=== PATIENT | male | born 1940 | race Caucasian/White ===

== ENCOUNTER 2018-07-12 13:44 | Inpatient (IN) ==
[2018-07-14] MEDS ORDERED: GLUCAGON 1 MG VIAL IM PRN (08:41)
[2018-07-14] MEDS ORDERED: DEXTROSE 50% 25 GM/50 ML VIAL IV PRN (08:41)
[2018-07-14] MEDS ORDERED: CEFUROXIME INJ 1,500 MG in SYRINGE 1 EACH IV ONE (08:41)
[2018-07-14] MEDS ORDERED: FUROSEMIDE 20 MG TABLET PO PRN (08:44)
[2018-07-14] MEDS ORDERED: CLORAZEPATE 3.75 MG TABLET PO PRN (08:45)
[2018-07-14] MEDS ORDERED: PANTOPRAZOLE 40 MG TABLET PO SCH (09:00)
[2018-07-14 11:37] LABS: Basophils % 0.7 % (0.0-0.8); Eosinophils # 0.1 10*3/uL (0.0-0.87); Eosinophils % 2.2 % (0.00-10.9); Hematocrit 43.1 VOL% (42.0-52.0); Hemoglobin 13.6 GM/DL (14.0-18.0); Immature Granulocytes % 0.2 %; Immature Granulocytes Absolute 0.01 #; Lymphocytes # 1.1 10*3/uL (1.4-4.0); Lymphocytes % 19.7 % (21.2-54.2); Mean Corpuscular HGB Conc 31.6 GM/DL (32-36); Mean Corpuscular Volume 92.7 FL (87-102); Mean Platelet Volume 9.6 FL (9.6-12.0); Monocytes % 8.3 % (1.7-12.7); Neutrophils % 68.9 % (38.7-73.9); Platelet Count 270 T/CUMM (130-400); Red Blood Count 4.65 MC/CUMM (3.8-5.5); Red Cell Distribution Width 13.5 % (9.3-17.3); White Blood Count 5.4 T/CUMM (4-12)
[2018-07-14 12:08] LABS: Bilirubin,Total 0.7 MG/DL (0.2-1.0); Calcium 9.1 MG/DL (8.5-10.1); Osmolality,Calculated 281.3 MOS/KG (273-304); Total Protein 7.5 G/DL (6.4-8.3)
[2018-07-14] MEDS: LEVOTHYROXINE 100 MCG TABLET PO SCH (14:20)
[2018-07-14] MEDS: ASCORBIC ACID 500 MG TABLET PO SCH (14:20)
[2018-07-14] MEDS: ASPIRIN EC 81 MG TABLET PO SCH (14:20)
[2018-07-14] MEDS: CHLORHEXIDINE 0.12% ORAL RINSE 60 ML BOTTLE SWISH/SPIT SCH ×2 (14:21→20:15)
[2018-07-14] MEDS: CHLORHEXIDINE 4% SOLN 118 ML BOTTLE TOP SCH ×2 (14:21→20:13)
[2018-07-14 16:32] LABS: ABG Base Excess 0.6 MMOL/L (-2.5-2.5); ABG HCO3 24.9 MMOL/L (20-26); ABG Oxygen Saturation 96.3 % (95-100); ABG PCO2 41.8 MM HG (35-48); ABG PH 7.394 (7.35-7.45); ABG PO2 82.2 MM HG (80-95); ABG TCO2 22.6 MMOL/L (23-27)
[2018-07-14] MEDS: SODIUM CHLORIDE 0.9% 1,000 ML IV SCH (18:15)
[2018-07-14] MEDS ORDERED: SIMVASTATIN 40 MG TABLET PO SCH (21:00)
[2018-07-15] MEDS ORDERED: VANCOMYCIN 1,000 MG VIAL ONE (04:36)
[2018-07-15] MEDS ORDERED: PAPAVERINE 60 MG/2 ML VIAL ONE (04:36)
[2018-07-15] MEDS ORDERED: CALCIUM CHLORIDE 1,000 MG/10 ML VIAL IV ONE (05:53)
[2018-07-15] MEDS ORDERED: MIDAZOLAM 10 MG/2 ML VIAL ONE (05:53)
[2018-07-15] MEDS ORDERED: HEPARIN/NACL 0.9% 2 UNITS/ML 500 ML IV ONE (05:53)
[2018-07-15] MEDS ORDERED: SUFentanil 250 MCG/5 ML AMP ONE (05:53)
[2018-07-15] MEDS ORDERED: SODIUM CHLORIDE 0.9% 250 ML IV ONE (05:54)
[2018-07-15] MEDS ORDERED: ePHEDrine 50 MG/ML AMP ONE (05:54)
[2018-07-15] MEDS ORDERED: NITROGLYCERIN DRIP 50 MG/250 ML BOTTLE IV ONE (05:54)
[2018-07-15] MEDS ORDERED: AMINOCAPROIC ACID 5,000 MG/20 ML VIAL ONE (05:54)
[2018-07-15] MEDS ORDERED: LACTATED RINGERS 1,000 ML IV ONE (05:54)
[2018-07-15] MEDS ORDERED: PHENYLEPHRINE 10 MG/1 ML VIAL IV ONE (05:54)
[2018-07-15] MEDS ORDERED: VECURONIUM 10 MG VIAL IV ONE (05:54)
[2018-07-15] MEDS ORDERED: SODIUM CHLORIDE 0.9% 1,000 ML IV ONE (05:54)
[2018-07-15] MEDS ORDERED: CEFUROXIME INJ 1,500 MG in SYRINGE 1 EACH IV ONE (06:30)
[2018-07-15 07:42] LABS: ABG Base Excess 1.3 MMOL/L (-2.5-2.5); ABG HCO3 25.6 MMOL/L (20-26); ABG PCO2 36.9 MM HG (35-48); ABG PH 7.441 (7.35-7.45); ABG TCO2 21.9 MMOL/L (23-27); Glucose Heart Surgery 114 MG/DL (74-106); Hematocrit Heart Surgery 39.3 PERCENT (42-52); Hemoglobin Heart Surgery 12.8 G/DL (14.0-18.0); Ionized Calcium Arterial 1.18 MMOL/L (1.21-1.46); PCO2 Patient Temp Arterial 36.9 MMHG; PH Patient Temp Arterial 7.441; Patient Temperature 37 CELCIUS; Potassium Heart/CVR 3.7 MMOL/L (3.5-5.1); Sodium Heart/CVR 140 MMOL/L (135-145)
[2018-07-15 08:53] LABS: Apearance,Urine CLEAR (Clear); Bilirubin,Urine Negative (Negative); Blood, Urine Negative (Negative); Glucose,Urine (UA) Negative (Negative); Hyaline Casts,Urine 3 /LPF (0-3); Ketones,Urine Negative (Negative); Mucus,Urine Many /LPF (Occasional); Nitrite,Urine Negative (Negative); Protein,Urine Negative; RBC,Urine 1 /HPF (0-4); Urine Color Yellow (Yellow); Urine Specific Gravity 1.017 (1.001-1.035); Urine Urobilinogen < 2.0 EU/DL (0.2-1.0); WBC,Urine 1 /HPF (0-6)
[2018-07-15 09:01] LABS: Hematocrit Heart Surgery 28.7 PERCENT (42-52); Hemoglobin Heart Surgery 9.3 G/DL (14.0-18.0); PCO2 Patient Temp Venous 33.9 MM HG; PH Patient Temp Venous 7.472; PO2 Patient Temp Venous 44.5 MM HG; Potassium Heart/CVR 4.3 MMOL/L (3.5-5.1); VBG Base Excess 1.5 MEQ/L (0-4); VBG HCO3 25.6 MEQ/L (24-28); VBG Oxygen Saturation 88.1 %; VBG PCO2 37.4 MMHG (41-51); VBG PH 7.443
[2018-07-15 09:38] LABS: Hemoglobin Heart Surgery 10.2 G/DL (14.0-18.0); PCO2 Patient Temp Venous 30.7 MM HG; PH Patient Temp Venous 7.504; PO2 Patient Temp Venous 48.7 MM HG; Potassium Heart/CVR 4.4 MMOL/L (3.5-5.1); VBG HCO3 23.6 MEQ/L (24-28); VBG Oxygen Saturation 87.2 %; VBG PCO2 30.7 MMHG (41-51); VBG PH 7.504; VBG PO2 48.7 MMHG (17-40)
[2018-07-15 10:07] LABS: Hemoglobin Heart Surgery 10.2 G/DL (14.0-18.0); PCO2 Patient Temp Venous 25.5 MM HG; PH Patient Temp Venous 7.566; PO2 Patient Temp Venous 38.3 MM HG; VBG Base Excess 0.9 MEQ/L (0-4); VBG HCO3 23.2 MEQ/L (24-28); VBG Oxygen Saturation 86.3 %; VBG PCO2 29.1 MMHG (41-51); VBG PH 7.52; VBG PO2 47.3 MMHG (17-40)
[2018-07-15] MEDS ORDERED: CALCIUM CHLORIDE 1,000 MG/10 ML SYRINGE IV ONE (10:16)
[2018-07-15] MEDS ORDERED: NITROPRUSSIDE 50 MG/2 ML VIAL ONE (10:16)
[2018-07-15] MEDS ORDERED: SODIUM BICARBONATE 50 MEQ/50 ML VIAL IV ONE ×2 (10:16→11:44)
[2018-07-15] MEDS ORDERED: PHENYLEPHRINE DRIP 40 MG/250 ML PREMIX IV ONE (10:16)
[2018-07-15] MEDS ORDERED: POTASSIUM CHLORIDE RIDER 100 ML IV ONE (10:16)
[2018-07-15] MEDS ORDERED: ALBUMIN 5% 12.5 GM/250 ML VIAL IV ONE (10:16)
[2018-07-15] MEDS ORDERED: AMIODARONE 150 MG/3 ML VIAL ONE (10:31)
[2018-07-15] MEDS ORDERED: diphenhydrAMINE 50 MG/1 ML VIAL ONE (10:31)
[2018-07-15] MEDS ORDERED: FAMOTIDINE 20 MG/2 ML VIAL IV ONE (10:31)
[2018-07-15 10:37] LABS: Hemoglobin Heart Surgery 10.5 G/DL (14.0-18.0); PCO2 Patient Temp Venous 27.3 MM HG; PH Patient Temp Venous 7.538; PO2 Patient Temp Venous 40.3 MM HG; VBG Base Excess 0.8 MEQ/L (0-4); VBG HCO3 22.9 MEQ/L (24-28); VBG Oxygen Saturation 83.2 %; VBG PCO2 28.5 MMHG (41-51); VBG PH 7.523; VBG PO2 43.2 MMHG (17-40)
[2018-07-15] MEDS ORDERED: MANNITOL 100 GM/500 ML BAG IV ONE (11:43)
[2018-07-15] MEDS ORDERED: DEXTROSE 5% KCL 20 MEQ 40 MEQ/2,000 ML BAG IV ONE (11:44)
[2018-07-15] MEDS ORDERED: PROTAMINE SULFATE 250 MG/25 ML VIAL IV ONE (11:44)
[2018-07-15] MEDS ORDERED: ALBUMIN 25% 25 GM/100 ML VIAL IV ONE (11:44)
[2018-07-15] MEDS ORDERED: methylPREDNISolone SOD SUC 1,000 MG/8 ML VIAL ONE (11:45)
[2018-07-15] MEDS ORDERED: MAGNESIUM SULFATE 5 GM/10 ML VIAL IV ONE (11:45)
[2018-07-15] MEDS ORDERED: HEPARIN 10,000 UNIT/10 ML VIAL ONE (11:45)
[2018-07-15] MEDS ORDERED: FUROSEMIDE 20 MG/2 ML VIAL ONE (11:45)
[2018-07-15 11:52] LABS: ABG Base Excess 1.4 MMOL/L (-2.5-2.5); ABG HCO3 25.7 MMOL/L (20-26); ABG PCO2 34.5 MM HG (35-48); ABG PH 7.465 (7.35-7.45); ABG TCO2 22.8 MMOL/L (23-27); Glucose Heart Surgery 227 MG/DL (74-106); Hematocrit Heart Surgery 28.4 PERCENT (42-52); Hemoglobin Heart Surgery 9.2 G/DL (14.0-18.0); Ionized Calcium Arterial 1.13 MMOL/L (1.21-1.46); PCO2 Patient Temp Arterial 34.5 MMHG; PH Patient Temp Arterial 7.465; Patient Temperature 37 CELCIUS; Potassium Heart/CVR 3.5 MMOL/L (3.5-5.1); Sodium Heart/CVR 135 MMOL/L (135-145)
[2018-07-15] MEDS ORDERED: THROMBIN TOPICAL (RECOMBINANT) 5,000 UNIT VIAL TOP ONE (12:00)
[2018-07-15] MEDS ORDERED: NITROPRUSSIDE 100 MG in DEXTROSE 5% 250 ML IV PRN (13:03)
[2018-07-15] MEDS ORDERED: CALCIUM CHLORIDE 1,000 MG/10 ML SYRINGE IV PRN (13:03)
[2018-07-15] MEDS ORDERED: SODIUM CHLORIDE 0.45% 1,000 ML IV SCH (13:03)
[2018-07-15] MEDS ORDERED: MIDAZOLAM 2 MG/2 ML VIAL IV PRN (13:03)
[2018-07-15] MEDS ORDERED: ACETAMINOPHEN 650 MG SUPP RECTAL PRN (13:03)
[2018-07-15] MEDS ORDERED: PHENYLEPHRINE DRIP 40 MG/250 ML PREMIX IV PRN (13:03)
[2018-07-15] MEDS ORDERED: VECURONIUM 10 MG VIAL IV PRN ×2 (13:03)
[2018-07-15] MEDS ORDERED: DEXTROSE 50% 25 GM/50 ML SYRINGE IV PRN ×2 (13:03)
[2018-07-15] MEDS ORDERED: MORPHINE 4 MG/1 ML VIAL IV PRN (13:03)
[2018-07-15] MEDS ORDERED: MIDAZOLAM 10 MG/2 ML VIAL IV PRN (13:03)
[2018-07-15] MEDS ORDERED: INSULIN REGULAR 100 UNIT/ML IV ONE ×2 (13:03→21:24)
[2018-07-15] MEDS ORDERED: MAGNESIUM SULF RIDER 4 GM in PREMIX 1 EACH IV PRN (13:03)
[2018-07-15] MEDS ORDERED: INSULIN REGULAR DRIP 100 ML IV SCH (13:03)
[2018-07-15] MEDS ORDERED: MAGNESIUM SULF RIDER 2 GM in PREMIX 1 EACH IV PRN (13:03)
[2018-07-15] MEDS ORDERED: MORPHINE 10 MG/1 ML VIAL IV PRN (13:03)
[2018-07-15] MEDS: AMIODARONE INJ 450 MG in DEXTROSE 5% 241 ML IV SCH ×2 (13:09→18:03)
[2018-07-15] MEDS ORDERED: PROTAMINE SULFATE 50 MG/5 ML VIAL IV ONE (13:09)
[2018-07-15 13:13] LABS: ABG Base Excess 1.8 MMOL/L (-2.5-2.5); ABG HCO3 26.1 MMOL/L (20-26); ABG Oxygen Saturation 99.4 % (95-100); ABG PCO2 34.2 MM HG (35-48); ABG PH 7.474 (7.35-7.45); ABG TCO2 22.8 MMOL/L (23-27); Glucose Heart Surgery 174 MG/DL (74-106); Hematocrit Heart Surgery 30.2 PERCENT (42-52); Hemoglobin Heart Surgery 9.7 G/DL (14.0-18.0); Potassium Heart/CVR 3.3 MMOL/L (3.5-5.1)
[2018-07-15 13:18] LABS: Basophils % 0.2 % (0.0-0.8); Eosinophils % 0.3 % (0.00-10.9); Hematocrit 29.7 VOL% (42.0-52.0); Hemoglobin 9.3 GM/DL (14.0-18.0); Immature Granulocytes % 0.7 %; Immature Granulocytes Absolute 0.08 #; Lymphocytes # 0.3 10*3/uL (1.4-4.0); Lymphocytes % 2.9 % (21.2-54.2); Mean Corpuscular HGB Conc 31.3 GM/DL (32-36); Mean Corpuscular Volume 93.7 FL (87-102); Mean Platelet Volume 9.6 FL (9.6-12.0); Monocytes % 3.7 % (1.7-12.7); Neutrophils % 92.2 % (38.7-73.9); Platelet Count 193 T/CUMM (130-400); Red Blood Count 3.17 MC/CUMM (3.8-5.5); Red Cell Distribution Width 13.4 % (9.3-17.3); White Blood Count 11.5 T/CUMM (4-12)
[2018-07-15 13:25] LABS: INR 1.1; Partial Thromboplastin Time 25.7 SECS (0-40)
[2018-07-15] MEDS: LACTATED RINGERS 250 ML IV PRN ×6 (13:30→19:12)
[2018-07-15] MEDS: POTASSIUM CHLORIDE RIDER 20 MEQ in PREMIX 1 EACH IV PRN ×3 (13:33→17:56)
[2018-07-15] MEDS: SODIUM CHLORIDE 0.45% 1,000 ML IV SCH (13:33)
[2018-07-15 13:36] LABS: CKMB % 12.9 %
[2018-07-15 13:39] LABS: Troponin I 14.4 NG/ML (0.00-0.045)
[2018-07-15] MEDS: ALBUMIN 5% 12.5 GM in PREMIX 1 EACH IV PRN ×2 (13:45→18:23)
[2018-07-15 13:49] LABS: Albumin 3.3 G/DL (3.4-5.0); Bilirubin,Total 0.9 MG/DL (0.2-1.0); Calcium 9.1 MG/DL (8.5-10.1); Osmolality,Calculated 282.4 MOS/KG (273-304)
[2018-07-15] MEDS: KETOROLAC 30 MG/1 ML VIAL IV SCH ×2 (14:39→18:04)
[2018-07-15 15:35] LABS: Hypochromasia Slight; Lymphocytes 2 % (20-55); Segmented Neutrophils 96 % (50-85); Total Cells Counted 100
[2018-07-15 15:36] LABS: Platelet Estimate Adequate
[2018-07-15 17:16] LABS: ABG Base Excess 0.5 MMOL/L (-2.5-2.5); ABG HCO3 24.9 MMOL/L (20-26); ABG Oxygen Saturation 99.4 % (95-100); ABG PCO2 30.9 MM HG (35-48); ABG PH 7.485 (7.35-7.45); ABG TCO2 21.1 MMOL/L (23-27); Glucose Heart Surgery 187 MG/DL (74-106); Hematocrit Heart Surgery 30.7 PERCENT (42-52); Hemoglobin Heart Surgery 9.9 G/DL (14.0-18.0); Potassium Heart/CVR 3.9 MMOL/L (3.5-5.1)
[2018-07-15] MEDS: POTASSIUM CHLORIDE RIDER 10 MEQ in PREMIX 1 EACH IV PRN ×2 (19:09→22:10)
[2018-07-15] MEDS: CEFUROXIME INJ 1,500 MG in SYRINGE 1 EACH IV SCH (20:04)
[2018-07-15] MEDS: CHLORHEXIDINE 0.12% ORAL RINSE 60 ML BOTTLE SWISH/SPIT SCH (20:33)
[2018-07-15 21:27] LABS: ABG Base Excess -1.4 MMOL/L (-2.5-2.5); ABG HCO3 23.3 MMOL/L (20-26); ABG Oxygen Saturation 98.7 % (95-100); ABG PCO2 35.6 MM HG (35-48); ABG PH 7.414 (7.35-7.45); ABG TCO2 20.9 MMOL/L (23-27); Glucose Heart Surgery 199 MG/DL (74-106); Hematocrit Heart Surgery 29.2 PERCENT (42-52); Hemoglobin Heart Surgery 9.4 G/DL (14.0-18.0); Potassium Heart/CVR 4.3 MMOL/L (3.5-5.1)
[2018-07-15 21:59] LABS: Troponin I 22.2 NG/ML (0.00-0.045)
[2018-07-15] MEDS: INSULIN REGULAR 100 UNIT/ML IV PRN (22:56)
[2018-07-16] MEDS ORDERED: FUROSEMIDE 40 MG/4 ML VIAL IV ONE (00:01)
[2018-07-16 00:09] LABS: ABG Base Excess -3.7 MMOL/L (-2.5-2.5); ABG HCO3 21.7 MMOL/L (20-26); ABG Oxygen Saturation 98.2 % (95-100); ABG PCO2 40.7 MM HG (35-48); ABG PH 7.345 (7.35-7.45); ABG PO2 134.5 MM HG (80-95); Glucose Heart Surgery 140 MG/DL (74-106); Hemoglobin Heart Surgery 11.4 G/DL (14.0-18.0); Potassium Heart/CVR 4.3 MMOL/L (3.5-5.1)
[2018-07-16] MEDS: ONDANSETRON 4 MG/2 ML VIAL IV PRN ×2 (00:32→10:05)
[2018-07-16] MEDS: KETOROLAC 30 MG/1 ML VIAL IV SCH (00:35)
[2018-07-16] MEDS: POTASSIUM CHLORIDE RIDER 20 MEQ in PREMIX 1 EACH IV PRN (01:03)
[2018-07-16] MEDS: LACTATED RINGERS 250 ML IV PRN ×3 (01:15→05:36)
[2018-07-16] MEDS: ALBUMIN 5% 12.5 GM in PREMIX 1 EACH IV PRN ×4 (01:17→07:37)
[2018-07-16 03:11] LABS: ABG Base Excess -1.3 MMOL/L (-2.5-2.5); ABG HCO3 23.3 MMOL/L (20-26); ABG PCO2 46.7 MM HG (35-48); ABG PH 7.333 (7.35-7.45); ABG TCO2 22.5 MMOL/L (23-27); Glucose Heart Surgery 126 MG/DL (74-106); Hematocrit Heart Surgery 33.2 PERCENT (42-52); Hemoglobin Heart Surgery 10.8 G/DL (14.0-18.0); Potassium Heart/CVR 4.9 MMOL/L (3.5-5.1)
[2018-07-16 03:23] LABS: Basophils % 0.1 % (0.0-0.8); Hemoglobin 10.3 GM/DL (14.0-18.0); Immature Granulocytes % 0.4 %; Immature Granulocytes Absolute 0.04 #; Lymphocytes # 0.2 10*3/uL (1.4-4.0); Lymphocytes % 1.9 % (21.2-54.2); Mean Corpuscular HGB Conc 30.3 GM/DL (32-36); Mean Corpuscular Volume 94.4 FL (87-102); Monocytes % 4.6 % (1.7-12.7); Platelet Count 199 T/CUMM (130-400); Red Cell Distribution Width 14.7 % (9.3-17.3); White Blood Count 9.2 T/CUMM (4-12)
[2018-07-16 03:32] LABS: Bilirubin,Direct 0.51 MG/DL (0.0-0.20); Bilirubin,Total 1.4 MG/DL (0.2-1.0); Calcium 8.7 MG/DL (8.5-10.1); Osmolality,Calculated 285.1 MOS/KG (273-304); Total Protein 6.9 G/DL (6.4-8.3)
[2018-07-16 03:36] LABS: CKMB % 10.5 %
[2018-07-16 03:39] LABS: Troponin I 23.1 NG/ML (0.00-0.045)
[2018-07-16] MEDS: POTASSIUM CHLORIDE RIDER 10 MEQ in PREMIX 1 EACH IV PRN (04:16)
[2018-07-16 04:38] LABS: Band Neutrophils 2 % (0-10); Lymphocytes 2 % (20-55); Segmented Neutrophils 94 % (50-85); Total Cells Counted 100
[2018-07-16 04:39] LABS: Anisocytosis 1+; Ovalocytes Few; Platelet Estimate Adequate
[2018-07-16] MEDS: INSULIN REGULAR 100 UNIT/ML IV PRN (05:07)
[2018-07-16] MEDS: AMIODARONE INJ 450 MG in DEXTROSE 5% 241 ML IV SCH (05:19)
[2018-07-16] MEDS ORDERED: NITROGLYCERIN DRIP 50 MG/250 ML BOTTLE IV ONE (07:00)
[2018-07-16] MEDS ORDERED: NITROGLYCERIN DRIP 50 MG/250 ML BOTTLE IV PRN (07:14)
[2018-07-16] MEDS: SODIUM CHLORIDE 0.9% 1,000 ML IV SCH (07:16)
[2018-07-16] MEDS: ASPIRIN EC 81 MG TABLET PO SCH ×2 (07:16→10:40)
[2018-07-16] MEDS: CHLORHEXIDINE 0.12% ORAL RINSE 60 ML BOTTLE SWISH/SPIT SCH ×3 (07:16→20:54)
[2018-07-16] MEDS: LEVOTHYROXINE 100 MCG TABLET PO SCH ×2 (07:16→10:40)
[2018-07-16] MEDS: ASCORBIC ACID 500 MG TABLET PO SCH ×2 (07:17→10:40)
[2018-07-16] MEDS ORDERED: traMADol 50 MG TABLET PO PRN (09:13)
[2018-07-16] MEDS ORDERED: PANTOPRAZOLE 40 MG TABLET PO SCH (09:30)
[2018-07-16] MEDS ORDERED: METOCLOPRAMIDE 10 MG/2 ML VIAL IV PRN (09:44)
[2018-07-16] MEDS: CEFUROXIME INJ 1,500 MG in SYRINGE 1 EACH IV SCH ×2 (09:45→20:54)
[2018-07-16] MEDS: CHLORHEXIDINE 4% SOLN 118 ML BOTTLE TOP SCH (10:20)
[2018-07-16] MEDS: INSULIN REGULAR 100 UNIT/ML SUBCUT SCH ×3 (11:37→20:54)
[2018-07-16 13:41] LABS: CKMB % 10.7 %
[2018-07-16] MEDS: SODIUM CHLORIDE 0.45% 1,000 ML IV SCH (13:41)
[2018-07-16 13:43] LABS: Troponin I 17.4 NG/ML (0.00-0.045)
[2018-07-16] MEDS ORDERED: SIMVASTATIN 40 MG TABLET PO SCH (21:00)
[2018-07-17] MEDS ORDERED: FUROSEMIDE 40 MG/4 ML VIAL IV ONE
[2018-07-17 04:35] LABS: Basophils % 0.1 % (0.0-0.8); Hematocrit 30.9 VOL% (42.0-52.0); Hemoglobin 9.6 GM/DL (14.0-18.0); Immature Granulocytes Absolute 0.15 #; Lymphocytes # 0.3 10*3/uL (1.4-4.0); Lymphocytes % 1.7 % (21.2-54.2); Mean Corpuscular HGB Conc 31.1 GM/DL (32-36); Mean Corpuscular Volume 93.4 FL (87-102); Mean Platelet Volume 10.6 FL (9.6-12.0); Monocytes % 4.1 % (1.7-12.7); Neutrophils % 93.1 % (38.7-73.9); Platelet Count 158 T/CUMM (130-400); Red Blood Count 3.31 MC/CUMM (3.8-5.5); Red Cell Distribution Width 15.1 % (9.3-17.3); White Blood Count 15.5 T/CUMM (4-12)
[2018-07-17 05:01] LABS: Albumin 3.9 G/DL (3.4-5.0); Bilirubin,Direct 0.27 MG/DL (0.0-0.20); Bilirubin,Total 1.1 MG/DL (0.2-1.0); Calcium 8.3 MG/DL (8.5-10.1); Osmolality,Calculated 284.5 MOS/KG (273-304); Total Protein 6.3 G/DL (6.4-8.3)
[2018-07-17 05:20] LABS: Band Neutrophils 4 % (0-10); Lymphocytes 1 % (20-55); Platelet Estimate Adequate; Segmented Neutrophils 93 % (50-85); Total Cells Counted 100
[2018-07-17] MEDS ORDERED: HEPARIN/NACL 0.9% 2 UNITS/ML 500 ML IV ONE (06:21)
[2018-07-17] MEDS: INSULIN REGULAR 100 UNIT/ML SUBCUT SCH ×2 (09:13→14:56)
[2018-07-17] MEDS: LEVOTHYROXINE 100 MCG TABLET PO SCH (09:15)
[2018-07-17] MEDS: CHLORHEXIDINE 0.12% ORAL RINSE 60 ML BOTTLE SWISH/SPIT SCH ×2 (09:15→21:04)
[2018-07-17] MEDS: ASPIRIN EC 81 MG TABLET PO SCH (09:15)
[2018-07-17] MEDS: ASCORBIC ACID 500 MG TABLET PO SCH (09:15)
[2018-07-17] MEDS ORDERED: AMIODARONE 200 MG TABLET PO SCH (09:30)
[2018-07-17] MEDS ORDERED: GLUCAGON 1 MG VIAL IM PRN ×2 (14:11)
[2018-07-17] MEDS ORDERED: MORPHINE 4 MG/1 ML VIAL IV PRN (14:11)
[2018-07-17] MEDS ORDERED: POTASSIUM CHLORIDE 20 MEQ TABLET PO PRN (14:11)
[2018-07-17] MEDS ORDERED: MAGNESIUM SULF RIDER 4 GM in PREMIX 1 EACH IV PRN (14:11)
[2018-07-17] MEDS ORDERED: SODIUM CHLOR 0.45% KCL 20 MEQ 20 MEQ/1,000 ML BAG IV SCH (14:11)
[2018-07-17] MEDS ORDERED: DEXTROSE 50% 25 GM/50 ML VIAL IV PRN ×2 (14:11)
[2018-07-17] MEDS ORDERED: ALUMINUM/MAGNES/SIMETH MAX STR 30 ML UDCUP PO PRN (14:11)
[2018-07-17] MEDS ORDERED: MAGNESIUM SULF RIDER 2 GM in PREMIX 1 EACH IV PRN (14:11)
[2018-07-17] MEDS ORDERED: ZALEPLON 5 MG CAPSULE PO PRN (14:11)
[2018-07-17] MEDS: SODIUM CHLORIDE 0.45% 1,000 ML IV SCH (14:56)
[2018-07-17] MEDS: MAGNESIUM HYDROXIDE SUSP 30 ML UDCUP PO PRN (17:07)
[2018-07-18 03:37] LABS: Basophils % 0.1 % (0.0-0.8); Hematocrit 34.2 VOL% (42.0-52.0); Hemoglobin 10.7 GM/DL (14.0-18.0); Immature Granulocytes % 0.7 %; Immature Granulocytes Absolute 0.11 #; Lymphocytes # 0.6 10*3/uL (1.4-4.0); Lymphocytes % 3.8 % (21.2-54.2); Mean Corpuscular HGB Conc 31.3 GM/DL (32-36); Mean Corpuscular Volume 92.2 FL (87-102); Mean Platelet Volume 10.7 FL (9.6-12.0); Monocytes % 6.7 % (1.7-12.7); Neutrophils % 88.7 % (38.7-73.9); Platelet Count 173 T/CUMM (130-400); Red Blood Count 3.71 MC/CUMM (3.8-5.5); Red Cell Distribution Width 14.7 % (9.3-17.3); White Blood Count 16.5 T/CUMM (4-12)
[2018-07-18 04:21] LABS: Band Neutrophils 1 % (0-10); Lymphocytes 3 % (20-55); Ovalocytes 1+; Platelet Estimate Normal; Segmented Neutrophils 92 % (50-85); Total Cells Counted 100
[2018-07-18 04:22] LABS: Hypochromasia Slight
[2018-07-18 04:33] LABS: Albumin 3.9 G/DL (3.4-5.0); Bilirubin,Direct 0.19 MG/DL (0.0-0.20); Bilirubin,Indirect 0.5 MG/DL (0.0-1.0); Bilirubin,Total 0.7 MG/DL (0.2-1.0); CKMB % 3.4 %; Calcium 8.7 MG/DL (8.5-10.1); Osmolality,Calculated 281.8 MOS/KG (273-304); Total Protein 6.8 G/DL (6.4-8.3)
[2018-07-18 04:34] LABS: Troponin I 10.9 NG/ML (0.00-0.045)
[2018-07-18] MEDS ORDERED: FUROSEMIDE 40 MG/4 ML VIAL IV ONE (06:00)
[2018-07-18] MEDS: ONDANSETRON 4 MG/2 ML VIAL IV PRN ×2 (07:06→12:59)
[2018-07-18] MEDS: PANTOPRAZOLE 40 MG TABLET PO SCH ×2 (08:04→09:20)
[2018-07-18] MEDS: LEVOTHYROXINE 100 MCG TABLET PO SCH (08:05)
[2018-07-18] MEDS: DOCUSATE SODIUM 100 MG CAPSULE PO SCH (08:12)
[2018-07-18] MEDS: ASCORBIC ACID 500 MG TABLET PO SCH (08:12)
[2018-07-18] MEDS: FERROUS SULFATE 325 MG TABLET PO SCH (08:13)
[2018-07-18] MEDS: AMIODARONE 200 MG TABLET PO SCH (08:13)
[2018-07-18] MEDS: ASPIRIN EC 81 MG TABLET PO SCH (08:13)
[2018-07-18] MEDS: CHLORHEXIDINE 0.12% ORAL RINSE 60 ML BOTTLE SWISH/SPIT SCH ×2 (08:14→21:15)
[2018-07-18] MEDS ORDERED: METOCLOPRAMIDE 10 MG/2 ML VIAL IV PRN (08:53)
[2018-07-18] MEDS ORDERED: PANTOPRAZOLE 40 MG TABLET PO SCH (09:00)
[2018-07-18] MEDS: APIXABAN 5 MG TABLET PO SCH ×2 (09:27→21:14)
[2018-07-18] MEDS ORDERED: CARVEDILOL 3.125 MG TABLET PO SCH (09:30)
[2018-07-19] MEDS: ACETAMINOPHEN 325 MG TABLET PO PRN ×2 (03:35→21:59)
[2018-07-19 05:39] LABS: Basophils % 0.1 % (0.0-0.8); Eosinophils % 0.1 % (0.00-10.9); Hematocrit 34.2 VOL% (42.0-52.0); Hemoglobin 10.3 GM/DL (14.0-18.0); Immature Granulocytes % 0.4 %; Immature Granulocytes Absolute 0.04 #; Lymphocytes # 0.9 10*3/uL (1.4-4.0); Lymphocytes % 8.9 % (21.2-54.2); Mean Corpuscular HGB Conc 30.1 GM/DL (32-36); Mean Corpuscular Volume 95.3 FL (87-102); Mean Platelet Volume 10.7 FL (9.6-12.0); Monocytes % 8.5 % (1.7-12.7); Platelet Count 178 T/CUMM (130-400); Red Blood Count 3.59 MC/CUMM (3.8-5.5); Red Cell Distribution Width 14.6 % (9.3-17.3); White Blood Count 10.6 T/CUMM (4-12)
[2018-07-19 06:14] LABS: Alanine Aminotransferase 27 U/L (16-61); Albumin 3.8 G/DL (3.4-5.0); Alkaline Phosphatase 65 U/L (45-117); Aspartate Amino Transferase 49 U/L (0-37); Bilirubin,Indirect 0.9 MG/DL (0.0-1.0); Blood Urea Nitrogen 31 MG/DL (7-18); Calcium 8.4 MG/DL (8.5-10.1); Glucose 87 MG/DL (74-106); Osmolality,Calculated 282.5 MOS/KG (273-304); Total Protein 6.4 G/DL (6.4-8.3)
[2018-07-19] MEDS: PANTOPRAZOLE 40 MG TABLET PO SCH (09:22)
[2018-07-19] MEDS: AMIODARONE 200 MG TABLET PO SCH (09:22)
[2018-07-19] MEDS: APIXABAN 5 MG TABLET PO SCH ×2 (09:22→21:58)
[2018-07-19] MEDS: LEVOTHYROXINE 100 MCG TABLET PO SCH (09:22)
[2018-07-19] MEDS: DOCUSATE SODIUM 100 MG CAPSULE PO SCH (09:23)
[2018-07-19] MEDS: CHLORHEXIDINE 0.12% ORAL RINSE 60 ML BOTTLE SWISH/SPIT SCH ×2 (09:23→22:05)
[2018-07-19] MEDS: FERROUS SULFATE 325 MG TABLET PO SCH (09:23)
[2018-07-19] MEDS: ASCORBIC ACID 500 MG TABLET PO SCH (09:23)
[2018-07-19] MEDS: ASPIRIN EC 81 MG TABLET PO SCH (09:23)
[2018-07-19] MEDS ORDERED: CARVEDILOL 3.125 MG TABLET PO SCH (21:00)
[2018-07-19] MEDS: CLORAZEPATE 3.75 MG TABLET PO PRN (21:58)
[2018-07-20 05:27] LABS: Basophils % 0.1 % (0.0-0.8); Eosinophils % 0.4 % (0.00-10.9); Hematocrit 31.2 VOL% (42.0-52.0); Hemoglobin 9.8 GM/DL (14.0-18.0); Immature Granulocytes % 0.3 %; Immature Granulocytes Absolute 0.02 #; Lymphocytes # 0.8 10*3/uL (1.4-4.0); Lymphocytes % 11.3 % (21.2-54.2); Mean Corpuscular HGB Conc 31.4 GM/DL (32-36); Mean Platelet Volume 10.3 FL (9.6-12.0); Monocytes % 10.9 % (1.7-12.7); Platelet Count 170 T/CUMM (130-400); Red Blood Count 3.39 MC/CUMM (3.8-5.5); Red Cell Distribution Width 14.5 % (9.3-17.3); White Blood Count 6.9 T/CUMM (4-12)
[2018-07-20 06:00] LABS: Calcium 8.3 MG/DL (8.5-10.1); Osmolality,Calculated 280.7 MOS/KG (273-304)
[2018-07-20] MEDS: LEVOTHYROXINE 100 MCG TABLET PO SCH (06:34)
[2018-07-20] MEDS: CARVEDILOL 6.25 MG TABLET PO SCH ×2 (08:56→21:09)
[2018-07-20] MEDS: ASPIRIN EC 81 MG TABLET PO SCH (08:56)
[2018-07-20] MEDS: APIXABAN 5 MG TABLET PO SCH ×2 (08:56→21:09)
[2018-07-20] MEDS: AMIODARONE 200 MG TABLET PO SCH (08:57)
[2018-07-20] MEDS: CHLORHEXIDINE 0.12% ORAL RINSE 60 ML BOTTLE SWISH/SPIT SCH ×2 (15:08→21:15)
[2018-07-20] MEDS: FERROUS SULFATE 325 MG TABLET PO SCH (15:08)
[2018-07-20] MEDS: PANTOPRAZOLE 40 MG TABLET PO SCH (15:08)
[2018-07-20] MEDS: DOCUSATE SODIUM 100 MG CAPSULE PO SCH (15:08)
[2018-07-20] MEDS: ASCORBIC ACID 500 MG TABLET PO SCH (15:08)
[2018-07-20] MEDS: ROSUVASTATIN 20 MG TABLET PO SCH (21:09)
[2018-07-20] MEDS: CLORAZEPATE 3.75 MG TABLET PO PRN (21:09)
[2018-07-20] MEDS: ACETAMINOPHEN 325 MG TABLET PO PRN (21:10)
[2018-07-20] MEDS: MAGNESIUM HYDROXIDE SUSP 30 ML UDCUP PO PRN (23:44)
[2018-07-21] MEDS: LEVOTHYROXINE 100 MCG TABLET PO SCH (05:32)
[2018-07-21 06:14] LABS: Basophils % 0.2 % (0.0-0.8); Eosinophils # 0.1 10*3/uL (0.0-0.87); Hematocrit 31.7 VOL% (42.0-52.0); Hemoglobin 9.8 GM/DL (14.0-18.0); Immature Granulocytes % 0.5 %; Immature Granulocytes Absolute 0.03 #; Lymphocytes % 14.6 % (21.2-54.2); Mean Corpuscular HGB Conc 30.9 GM/DL (32-36); Mean Corpuscular Volume 92.7 FL (87-102); Mean Platelet Volume 9.9 FL (9.6-12.0); Monocytes % 12.8 % (1.7-12.7); Neutrophils % 69.9 % (38.7-73.9); Platelet Count 166 T/CUMM (130-400); Red Blood Count 3.42 MC/CUMM (3.8-5.5); Red Cell Distribution Width 14.4 % (9.3-17.3); White Blood Count 6.7 T/CUMM (4-12)
[2018-07-21 06:45] LABS: Alanine Aminotransferase 28 U/L (16-61); Alkaline Phosphatase 60 U/L (45-117); Aspartate Amino Transferase 37 U/L (0-37); Bilirubin,Indirect 0.5 MG/DL (0.0-1.0); Blood Urea Nitrogen 30 MG/DL (7-18); Calcium 8.6 MG/DL (8.5-10.1); Glucose 92 MG/DL (74-106); Total Protein 5.8 G/DL (6.4-8.3)
[2018-07-21 08:13] LABS: Calcium 8.5 MG/DL (8.5-10.1); Osmolality,Calculated 279.8 MOS/KG (273-304)
[2018-07-21] MEDS: AMIODARONE 200 MG TABLET PO SCH (09:06)
[2018-07-21] MEDS: APIXABAN 5 MG TABLET PO SCH ×2 (09:06→21:43)
[2018-07-21] MEDS: CARVEDILOL 6.25 MG TABLET PO SCH ×2 (09:06→21:43)
[2018-07-21] MEDS: ASPIRIN EC 81 MG TABLET PO SCH (09:07)
[2018-07-21] MEDS: CHLORHEXIDINE 0.12% ORAL RINSE 60 ML BOTTLE SWISH/SPIT SCH ×2 (09:07→21:43)
[2018-07-21] MEDS: PANTOPRAZOLE 40 MG TABLET PO SCH (09:07)
[2018-07-21] MEDS: DOCUSATE SODIUM 100 MG CAPSULE PO SCH (10:42)
[2018-07-21] MEDS: FERROUS SULFATE 325 MG TABLET PO SCH (10:42)
[2018-07-21] MEDS: ASCORBIC ACID 500 MG TABLET PO SCH (10:42)
[2018-07-21] MEDS: ROSUVASTATIN 20 MG TABLET PO SCH (21:43)
[2018-07-21] MEDS: CLORAZEPATE 3.75 MG TABLET PO PRN (21:47)
[2018-07-22 04:58] LABS: Basophils % 0.1 % (0.0-0.8); Eosinophils # 0.2 10*3/uL (0.0-0.87); Eosinophils % 2.4 % (0.00-10.9); Hematocrit 30.1 VOL% (42.0-52.0); Hemoglobin 9.5 GM/DL (14.0-18.0); Immature Granulocytes % 0.5 %; Immature Granulocytes Absolute 0.04 #; Lymphocytes # 1.2 10*3/uL (1.4-4.0); Lymphocytes % 15.3 % (21.2-54.2); Mean Corpuscular HGB Conc 31.6 GM/DL (32-36); Monocytes % 12.7 % (1.7-12.7); Platelet Count 191 T/CUMM (130-400); Red Blood Count 3.27 MC/CUMM (3.8-5.5); Red Cell Distribution Width 14.4 % (9.3-17.3); White Blood Count 7.6 T/CUMM (4-12)
[2018-07-22 05:27] LABS: Calcium 8.4 MG/DL (8.5-10.1); Osmolality,Calculated 280.7 MOS/KG (273-304)
[2018-07-22 05:34] LABS: Alanine Aminotransferase 35 U/L (16-61); Albumin 3.2 G/DL (3.4-5.0); Alkaline Phosphatase 67 U/L (45-117); Aspartate Amino Transferase 40 U/L (0-37); Bilirubin,Indirect 0.7 MG/DL (0.0-1.0); Blood Urea Nitrogen 29 MG/DL (7-18); Calcium 8.7 MG/DL (8.5-10.1); Glucose 92 MG/DL (74-106); Osmolality,Calculated 282.5 MOS/KG (273-304); Total Protein 5.9 G/DL (6.4-8.3)
[2018-07-22] MEDS: LEVOTHYROXINE 100 MCG TABLET PO SCH (05:57)
[2018-07-22] MEDS ORDERED: FUROSEMIDE 40 MG TABLET PO ONE (07:41)
[2018-07-22] MEDS: CARVEDILOL 6.25 MG TABLET PO SCH ×2 (08:10→21:48)
[2018-07-22] MEDS: AMIODARONE 200 MG TABLET PO SCH (08:10)
[2018-07-22] MEDS: PANTOPRAZOLE 40 MG TABLET PO SCH (08:10)
[2018-07-22] MEDS: APIXABAN 5 MG TABLET PO SCH ×2 (08:10→21:48)
[2018-07-22] MEDS: ASPIRIN EC 81 MG TABLET PO SCH (08:10)
[2018-07-22] MEDS: DOCUSATE SODIUM 100 MG CAPSULE PO SCH (08:13)
[2018-07-22] MEDS: ASCORBIC ACID 500 MG TABLET PO SCH (08:13)
[2018-07-22] MEDS: CHLORHEXIDINE 0.12% ORAL RINSE 60 ML BOTTLE SWISH/SPIT SCH ×2 (08:13→21:49)
[2018-07-22] MEDS: FERROUS SULFATE 325 MG TABLET PO SCH (08:13)
[2018-07-22] MEDS: ROSUVASTATIN 20 MG TABLET PO SCH (21:48)
[2018-07-23 05:05] LABS: Basophils % 0.1 % (0.0-0.8); Eosinophils # 0.2 10*3/uL (0.0-0.87); Eosinophils % 2.5 % (0.00-10.9); Hematocrit 29.7 VOL% (42.0-52.0); Hemoglobin 9.3 GM/DL (14.0-18.0); Immature Granulocytes % 0.8 %; Immature Granulocytes Absolute 0.06 #; Lymphocytes # 0.9 10*3/uL (1.4-4.0); Mean Corpuscular HGB Conc 31.3 GM/DL (32-36); Mean Corpuscular Volume 91.4 FL (87-102); Mean Platelet Volume 9.4 FL (9.6-12.0); Monocytes % 10.8 % (1.7-12.7); Neutrophils % 73.8 % (38.7-73.9); Platelet Count 213 T/CUMM (130-400); Red Blood Count 3.25 MC/CUMM (3.8-5.5); Red Cell Distribution Width 14.3 % (9.3-17.3); White Blood Count 7.5 T/CUMM (4-12)
[2018-07-23 05:13] LABS: Calcium 8.4 MG/DL (8.5-10.1); Osmolality,Calculated 279.7 MOS/KG (273-304)
[2018-07-23] MEDS: LEVOTHYROXINE 100 MCG TABLET PO SCH (06:49)
[2018-07-23] MEDS: APIXABAN 5 MG TABLET PO SCH ×2 (08:38→21:48)
[2018-07-23] MEDS: PANTOPRAZOLE 40 MG TABLET PO SCH (08:38)
[2018-07-23] MEDS: AMIODARONE 200 MG TABLET PO SCH (08:38)
[2018-07-23] MEDS: ASPIRIN EC 81 MG TABLET PO SCH (08:38)
[2018-07-23] MEDS: CARVEDILOL 6.25 MG TABLET PO SCH ×2 (08:39→21:48)
[2018-07-23] MEDS: FERROUS SULFATE 325 MG TABLET PO SCH (08:39)
[2018-07-23] MEDS: CHLORHEXIDINE 0.12% ORAL RINSE 60 ML BOTTLE SWISH/SPIT SCH ×2 (08:40→21:48)
[2018-07-23] MEDS: DOCUSATE SODIUM 100 MG CAPSULE PO SCH (08:40)
[2018-07-23] MEDS: ASCORBIC ACID 500 MG TABLET PO SCH (08:40)
[2018-07-23] MEDS ORDERED: FUROSEMIDE 40 MG/4 ML VIAL IV ONE (11:20)
[2018-07-23] MEDS: ROSUVASTATIN 20 MG TABLET PO SCH (21:48)
[2018-07-24 06:01] LABS: Basophils % 0.1 % (0.0-0.8); Eosinophils # 0.1 10*3/uL (0.0-0.87); Eosinophils % 1.5 % (0.00-10.9); Hematocrit 31.2 VOL% (42.0-52.0); Hemoglobin 10.1 GM/DL (14.0-18.0); Immature Granulocytes % 0.6 %; Immature Granulocytes Absolute 0.05 #; Lymphocytes # 1.1 10*3/uL (1.4-4.0); Lymphocytes % 14.2 % (21.2-54.2); Mean Corpuscular HGB Conc 32.4 GM/DL (32-36); Mean Corpuscular Volume 90.4 FL (87-102); Mean Platelet Volume 9.5 FL (9.6-12.0); Monocytes % 11.6 % (1.7-12.7); Platelet Count 241 T/CUMM (130-400); Red Blood Count 3.45 MC/CUMM (3.8-5.5); Red Cell Distribution Width 14.5 % (9.3-17.3); White Blood Count 7.8 T/CUMM (4-12)
[2018-07-24] MEDS: LEVOTHYROXINE 100 MCG TABLET PO SCH (06:35)
[2018-07-24 06:53] LABS: Calcium 8.7 MG/DL (8.5-10.1); Osmolality,Calculated 276.8 MOS/KG (273-304)
[2018-07-24] MEDS: ASPIRIN EC 81 MG TABLET PO SCH (08:46)
[2018-07-24] MEDS: ASCORBIC ACID 500 MG TABLET PO SCH ×2 (08:46→08:48)
[2018-07-24] MEDS: FERROUS SULFATE 325 MG TABLET PO SCH (08:47)
[2018-07-24] MEDS: CARVEDILOL 6.25 MG TABLET PO SCH (08:47)
[2018-07-24] MEDS: APIXABAN 5 MG TABLET PO SCH (08:47)
[2018-07-24] MEDS: PANTOPRAZOLE 40 MG TABLET PO SCH (08:47)
[2018-07-24] MEDS: DOCUSATE SODIUM 100 MG CAPSULE PO SCH (08:47)
[2018-07-24] MEDS: CHLORHEXIDINE 0.12% ORAL RINSE 60 ML BOTTLE SWISH/SPIT SCH (08:49)
[2018-07-24] MEDS: AMIODARONE 200 MG TABLET PO SCH (08:50)
[2018-07-24 12:21] VITALS: BP 107/57
== END 2018-07-24 15:11 | disposition home health service (06) | DRG 220 ==
LOC: N.4E 07-14 08:46 → N.CVR 07-15 10:26 → N.ICU 07-16 09:58 → N.TELES 07-17 15:55
PROC: CABGMVR (ICD-10-PCS; 2018-07-15 08:00)

== ENCOUNTER 2021-07-31 05:45 | Observation (INO) ==
[2021-07-26 11:56] LABS: Basophils % 0.7 % (0.0-0.8); Eosinophils # 0.1 10*3/uL (0.0-0.87); Eosinophils % 2.7 % (0.00-10.9); Hemoglobin 11.5 GM/DL (14.0-18.0); Immature Granulocytes % 0.5 %; Immature Granulocytes Absolute 0.02 #; Lymphocytes % 23.2 % (21.2-54.2); Mean Corpuscular HGB Conc 31.1 GM/DL (32-36); Mean Corpuscular Volume 91.4 FL (87-102); Mean Platelet Volume 10.1 FL (9.6-12.0); Monocytes # 0.4 10*3/uL (0.11-0.8); Monocytes % 10.2 % (1.7-12.7); Neutrophils % 62.7 % (38.7-73.9); Platelet Count 212 T/CUMM (130-400); Red Blood Count 4.05 MC/CUMM (3.8-5.5); Red Cell Distribution Width 14.6 % (9.3-17.3); White Blood Count 4.1 T/CUMM (4-12)
[2021-07-26 12:00] LABS: Bilirubin,Urine Negative (Negative); Blood, Urine Negative (Negative); Glucose,Urine (UA) Negative (Negative); Ketones,Urine Negative (Negative); Mucus,Urine Occasional /LPF (Occasional); Nitrite,Urine Negative (Negative); Protein,Urine Trace mg/dL (Negative); RBC,Urine 1 /HPF (0-4); Urine Appearance Clear (Clear); Urine Color Yellow (Yellow); Urine Specific Gravity 1.025 (1.001-1.035)
[2021-07-26 12:07] LABS: Albumin 3.7 G/DL (3.4-5.0); Bilirubin,Total 0.7 MG/DL (0.20-1.00); Calcium 9.7 MG/DL (8.5-10.1); Osmolality,Calculated 278.5 MOS/KG (273-304); Potassium 4.5 MMOL/L (3.5-5.1); Total Protein 6.8 G/DL (6.4-8.2)
[2021-07-26 12:09] LABS: PT Patient Result 11.4 SECS (10.5-12.0); Partial Thromboplastin Time 30.8 SECS (23.8-32.1)
[2021-07-31] MEDS ORDERED: VANCOMYCIN INJ 1,000 MG in SODIUM CHLORIDE 0.9% 250 ML IV ONE (06:00)
[2021-07-31] MEDS ORDERED: LACTATED RINGERS 1,000 ML IV SCH (06:00)
[2021-07-31] MEDS ORDERED: ACETAMINOPHEN 500 MG TABLET PO ONE (06:47)
[2021-07-31] MEDS ORDERED: GABAPENTIN 400 MG CAPSULE PO ONE (06:47)
[2021-07-31] MEDS ORDERED: FAMOTIDINE 20 MG TABLET PO ONE (06:47)
[2021-07-31] MEDS ORDERED: fentaNYL 100 MCG/2 ML VIAL ONE (06:49)
[2021-07-31] MEDS ORDERED: buprenorphine HCL 0.3 MG/ML VIAL ONE (06:58)
[2021-07-31] MEDS ORDERED: BUPIVACAINE SPINAL 0.75% 2 ML AMP SPINAL ONE (06:58)
[2021-07-31] MEDS ORDERED: SODIUM CHLORIDE 0.9% 250 ML IV ONE (07:00)
[2021-07-31] MEDS ORDERED: propofoL 200 MG/20 ML VIAL IV ONE (07:01)
[2021-07-31] MEDS ORDERED: BUPIVACAINE MPF 0.25% 30 ML VIAL ONE (07:09)
[2021-07-31] MEDS ORDERED: DEXAMETHASONE 4 MG/1 ML VIAL ONE (07:09)
[2021-07-31] MEDS ORDERED: LIDOCAINE 1% 5 ML VIAL ONE (07:09)
[2021-07-31] MEDS ORDERED: BACITRACIN OINT 0.9 GM PACK TOP ONE ×2 (07:37→10:00)
[2021-07-31] MEDS ORDERED: MIDAZOLAM 2 MG/2 ML VIAL ONE (08:22)
[2021-07-31] MEDS ORDERED: GLYCOPYRROLATE 0.4 MG/2 ML VIAL ONE (09:15)
[2021-07-31] MEDS ORDERED: TRANEXAMIC ACID 1,000 MG/10 ML VIAL ONE (09:15)
[2021-07-31] MEDS ORDERED: ePHEDrine 50 MG/ML VIAL ONE (09:17)
[2021-07-31] MEDS ORDERED: PHENYLEPHRINE 1 MG/10 ML SYRINGE IV ONE (09:27)
[2021-07-31] MEDS ORDERED: ESMOLOL 100 MG/10 ML VIAL IV ONE (09:44)
[2021-07-31] MEDS ORDERED: LACTATED RINGERS 1,000 ML IV ONE (10:04)
[2021-07-31] MEDS ORDERED: ZALEPLON 5 MG CAPSULE PO PRN (10:12)
[2021-07-31] MEDS ORDERED: MAGNESIUM HYDROXIDE SUSP 30 ML UDCUP PO PRN (10:12)
[2021-07-31] MEDS ORDERED: FUROSEMIDE 20 MG TABLET PO PRN (10:12)
[2021-07-31] MEDS ORDERED: NITROGLYCERIN SL 0.4 MG TABLET SL PRN (10:12)
[2021-07-31] MEDS ORDERED: diphenhydrAMINE CAP 25 MG CAPSULE PO PRN (10:12)
[2021-07-31] MEDS ORDERED: oxyCODONE/ACETAMINOPHEN 5-325 MG TABLET PO PRN ×2 (10:12)
[2021-07-31] MEDS ORDERED: MORPHINE 2 MG/1 ML SYRINGE IV PRN ×2 (10:12)
[2021-07-31] MEDS ORDERED: ONDANSETRON 4 MG/2 ML VIAL IV PRN (10:12)
[2021-07-31 10:34] LABS: Mucus,Urine Occasional /LPF (Occasional); RBC,Urine 1 /HPF (0-4); Squamous Epithelial Cell,Urine Occasional /HPF (0-10)
[2021-07-31 10:38] LABS: Urine Appearance Clear (Clear); Urine Color Yellow (Yellow); Urine Specific Gravity > 1.030 (1.001-1.035); Urine pH 6.5 (4.5-8.0)
[2021-07-31 10:39] LABS: Bilirubin,Urine Negative (Negative); Blood, Urine Negative (Negative); Glucose,Urine (UA) Negative (Negative); Ketones,Urine Negative (Negative); Nitrite,Urine Negative (Negative); Protein,Urine Negative (Negative); Urine Urobilinogen 0.2 eU/dL (<2.0)
[2021-07-31] MEDS: LACTATED RINGERS 1,000 ML IV SCH ×3 (14:26→23:50)
[2021-07-31] MEDS: KETOROLAC 15 MG/1 ML VIAL IV SCH ×3 (14:29→21:41)
[2021-07-31] MEDS ORDERED: ROSUVASTATIN 20 MG TABLET PO SCH (21:00)
[2021-07-31] MEDS: PANTOPRAZOLE 40 MG TABLET PO SCH (21:14)
[2021-07-31] MEDS: DOCUSATE SODIUM 100 MG CAPSULE PO SCH (21:15)
[2021-07-31] MEDS: APIXABAN 2.5 MG TABLET PO SCH (21:15)
[2021-08-01] MEDS: LACTATED RINGERS 1,000 ML IV SCH (03:45)
[2021-08-01] MEDS: KETOROLAC 15 MG/1 ML VIAL IV SCH (04:17)
[2021-08-01 05:02] LABS: Hematocrit 27.8 VOL% (42.0-52.0); Hemoglobin 8.7 GM/DL (14.0-18.0); Immature Granulocytes % 0.2 %; Immature Granulocytes Absolute 0.01 #; Lymphocytes # 0.3 10*3/uL (1.4-4.0); Mean Corpuscular HGB Conc 31.3 GM/DL (32-36); Mean Corpuscular Volume 91.1 FL (87-102); Mean Platelet Volume 10.3 FL (9.6-12.0); Monocytes # 0.7 10*3/uL (0.11-0.8); Monocytes % 12.4 % (1.7-12.7); Neutrophils % 81.4 % (38.7-73.9); Platelet Count 147 T/CUMM (130-400); Red Blood Count 3.05 MC/CUMM (3.8-5.5); Red Cell Distribution Width 14.2 % (9.3-17.3); White Blood Count 5.5 T/CUMM (4-12)
[2021-08-01 05:17] LABS: Calcium 8.6 MG/DL (8.5-10.1); Osmolality,Calculated 275.1 MOS/KG (273-304); Potassium 4.6 MMOL/L (3.5-5.1)
[2021-08-01] MEDS ORDERED: LEVOTHYROXINE 75 MCG TABLET PO SCH (06:30)
[2021-08-01] MEDS: DOCUSATE SODIUM 100 MG CAPSULE PO SCH (08:46)
[2021-08-01] MEDS: PANTOPRAZOLE 40 MG TABLET PO SCH (08:46)
[2021-08-01] MEDS: APIXABAN 2.5 MG TABLET PO SCH (08:46)
[2021-08-01 11:36] LABS: % Iron Saturation 6.9 % (18-50); Ferritin 59.4 ng/mL (26-388)
[2021-08-01 11:40] LABS: Folate 10.46 NG/ML (5.38-24.0)
[2021-08-01 12:05] VITALS: BP 122/50
== END 2021-08-01 15:44 | disposition home or self-care (01) ==
LOC: N.SDSINP 05:45 → INTOOBSV 05:45 → N.3E 14:21
PROVIDERS: ADMIT Orthopaedic Surgery; ATTEND Orthopaedic Surgery